=== PATIENT | female | born 1970 | race Hispanic/Latino ===

== ENCOUNTER 2016-09-21 08:42 | Emergency (ER) | payer OTHER ==
[~2016-09-21] VITALS: Ht 170.2 cm; Wt 102.0 kg
[~2016-09-21 08:42] MED LIST: AMOXICILLIN500 M1 PO; DOXYCYCLINE HY100 MG PO; EPIPEN ADU0.3 MG/0.3 IM; FLEXERIL10 MG PO; GABAPENTIN300 MG PO; LIDODERM 5% P1 PATCH TD; MINIPRESS1 MG PO; MINIPRESS5 MG PO; MOTRIN600 MG PO; MOTRIN800 MG PO; NAPROSYN500 MG PO; NEURONTIN300 MG PO; NO MEDS; PREDNISONE20 MG PO; PYRIDIUM100 MG PO; SKELAXIN800 MG PO; TRAMADOL HCL50 MG PO; ULTRAM50 MG PO; VALIUM5 MG PO
[2016-09-21] MEDS ORDERED: NAPROSYN500 MG PO (10:35)
[2016-09-21 10:51] VITALS: BP 124/64
== END 2016-09-21 10:58 | disposition home or self-care (01) ==
LOC: EME 08:42
DX: S93.401A Sprain of unspecified ligament of right ankle, initial encounter (principal); S96.911A Strain of unspecified muscle and tendon at ankle and foot level, right foot, initial encounter; X50.9XXA Other and unspecified overexertion or strenuous movements or postures, initial encounter; Y93.9 Activity, unspecified; M79.671 Pain in right foot
CPT/HCPCS: 73610; 73630; 99281; 99285

== ENCOUNTER → 2016-12-04 | Emergency (ER) | payer OTHER ==
[~2016-12-04] VITALS: Ht 170.2 cm; Wt 102.0 kg
[~2016-12-04] MED LIST changes: +ANTIVERT25 MG PO; +FIORICET 50-301 EACH PO
[2016-12-04 19:02] LABS: HEMATOCRIT 43.5 % (36.0-46.0); MCHC 34.7 G/DL (30.0-36.0); MCV 89.3 FL (83-99); MEAN PLAT.VOLUME 9.9 uM^3 (9.5-12.4); PLATELET COUNT 320 K/uL (156-360); RBC DIS.WIDTH-CV 11.4 % (11.8-14.6); RBC DIS.WIDTH-SD 36.3 % (39-53); RED BLOOD COUNT 4.87 M/uL (3.80-5.20); WHITE BLOOD COUNT 7.8 K/uL (4.1-10.2)
[2016-12-04 19:12] LABS: CHLORIDE 101 mEq/L (99-109); POTASSIUM 4.3 mEq/L (3.7-5.4); SODIUM 136 mEq/L (136-147)
[2016-12-04 19:14] LABS: GLUCOSE 159 mg/dL (70-99)
[2016-12-04 19:15] LABS: ANION GAP 9 MEQ/L (2-14)
[2016-12-04 19:18] LABS: GFR ESTIMATE (CALCULATED) > 59 mL/min/; UREA NITROGEN (BUN) 9 mg/dL (9-23)
[2016-12-04 20:08] LABS: ADD MIUA? YES; BILIRUBIN NEGATIVE; BLOOD SMALL; COLOR YELLOW ((YELLOW)); GLUCOSE (STRIP) NEGATIVE; KETONES NEGATIVE; LEUKOCYTES LARGE; NITRITE NEGATIVE; PROTEIN (STRIP) 30; SPECIFIC GRAVITY 1.017 (1.000-1.030); UROBILINOGEN 0.2 MG/DL (0.2-1.0)
[2016-12-04 20:19] LABS: BACTERIA RARE /HPF; EPITHELIAL CELLS 2+ /HPF; MUCUS 1+ /LPF; RED BLOOD CELLS 15-20 /HPF (0-5); UCUL ADDED? NO; WHITE BLOOD CELLS 30-40 /HPF (0-5)
[2016-12-04 22:17] LABS: D-DIMER ELISA < 150.00 ng/mLDDU (<230)
[2016-12-04 23:33] VITALS: BP 134/72
== END | disposition home or self-care (01) ==
LOC: EME 18:24
PROVIDERS: Physician Assistant
DX: G44.209 Tension-type headache, unspecified, not intractable (principal); R42 Dizziness and giddiness; R00.2 Palpitations; I10 Essential (primary) hypertension
CPT/HCPCS: 71020; 80048; 81003; 84443; 85027; 85379; 87086; 99281; 99284